=== PATIENT | male | born 1955 | race Caucasian/White ===

== ENCOUNTER 2017-06-11 14:22 | Emergency (ER) | payer BC, OTHER ==
[~2017-06-11] VITALS: Ht 172.7 cm; Wt 88.0 kg
[~2017-06-11 14:22] MED LIST: MISC1CAP60 PO; MULT-513 PO; MULT-655 PO; OMEG10007 PO; PRT40 PO
[2017-06-11 14:29] VITALS: TEMP 36.7; Ht 172.7 cm; Wt 88.0 kg
--- NOTE | 2017-06-11 15:17 | DIAGNOSTIC IMAGING REPORT ---
CT SCAN OF THE THORACIC SPINE WITHOUT IV CONTRAST CLINICAL HISTORY: Trauma. COMPARISON STUDY: Chest CT performed the same day 06/11/2017. TECHNIQUE: CT scan of the thoracic spine is performed from the lower cervical spine to the upper lumbar spine. Images are reviewed in the axial, sagittal, and coronal planes. IV contrast was not administered for this examination. A dose lowering technique was utilized adhering to the principles of ALARA. CT DOSE: 548.09 mGycm FINDINGS: The skeletal structures are osteopenic. There are subtle fractures of the posterior right sixth, seventh, and eighth ribs at the costovertebral junction. There are minimal and age indeterminant compression deformities of T1, T2, and T3. No retropulsed fragments are identified. Vertebral body height is otherwise maintained throughout the thoracic spine. Alignment is preserved. The transverse and spinous processes are intact. There is mild multilevel degenerative disc space narrowing. Small anterior osteophytes are seen throughout and there is hyperkyphosis. The visualized lung parenchyma is clear as imaged noting bibasilar scarring and atelectasis. The paraspinous soft tissues are within normal limits. A tiny hiatal hernia is observed. IMPRESSION: 1. There are minimal and age indeterminant superior endplate compression deformities of T1, T2, and T3. Correlate for point tenderness at these levels. 2. No additional findings are concerning for acute fracture involving the thoracic spine. 3. There are subtle nondistracted fractures of the posterior right 6th through 8th ribs at the costovertebral junction. 4. Osteopenia with mild degenerative change and hyperkyphosis as above. Electronically signed by: Malcolm Stringer M.D. 06/11/2017 3:15 PM Dictated Date/Time: 06/11/2017 3:06 PM
--- NOTE | 2017-06-11 15:18 | DIAGNOSTIC IMAGING REPORT ---
CT OF THE CHEST WITHOUT IV CONTRAST CLINICAL HISTORY: Trauma. Right-sided rib pain. COMPARISON STUDY: No previous studies for comparison. TECHNIQUE: Axial images of the chest were obtained without IV contrast. Images were reviewed in the axial, sagittal, and coronal planes. IV contrast was not administered for this examination. A dose lowering technique was utilized adhering to the principles of ALARA. FINDINGS: There is subtle sternal deformity. This is age indeterminate although likely old. No pneumothorax or pleural effusion is present. No enlarged thoracic lymph nodes are present. The central airways are patent. The thoracic spine will be reported separately. Note is made of multiple nondisplaced anterior right-sided rib fractures, including the anterior right third, fourth, fifth, sixth, seventh, eighth and ninth ribs. These are age-indeterminate but likely acute. There are also nondisplaced fractures of the posterior right sixth, seventh and eighth ribs which are likely acute as well. The upper abdomen is unremarkable on this unenhanced exam. IMPRESSION: 1. Multiple nondisplaced anterior and posterior right-sided rib fractures, as described above, which are age indeterminate but likely acute. No pneumothorax. 2. Mild sternal deformity which is age-indeterminate but likely old. This suggests old traumatic injury. Electronically signed by: Deric Quinteros M.D. 06/11/2017 3:17 PM Dictated Date/Time: 06/11/2017 3:05 PM
[2017-06-11] MEDS ORDERED: PANT40TA PO (15:21)
[2017-06-11] MEDS ORDERED: OXYCODONE HCL IR 5 MG TAB (IMMEDIATE RELEASE) PO STA (15:46)
[2017-06-11] MEDS ORDERED: OXYC1TAB3 PO (15:51)
--- NOTE | 2017-06-11 15:58 | EMERGENCY ROOM VISIT NOTE ---
History First contact with patient: 14:31 Chief Complaint: RIB PAIN Stated Complaint: ROLLED OVER ZERO TURN MOWER-RT RIBS/NECK/SHOULDER History of Present Illness The patient is a 61 year old male who presents to the Emergency Room with complaints of upper back and right rib pain. The patient states that he was smelling with a 0 radius mower on a hill when it flipped over. He states that it rolled over him and landed alongside him on that side. The patient states that he was able to get up on his own. The patient denies any loss of consciousness. The patient denies any head or neck pain. The patient denies any visual changes or shortness of breath. The patient does admit to right- sided rib pain and upper back pain. He denies any numbness and tingling in his extremities. The patient denies any abdominal pain. The patient states that he urinated prior to coming to the emergency room and there was no blood in his urine. The patient took acetaminophen for pain. Review of Systems 10 system review was performed and was negative unless stated otherwise history of present illness. Past Medical/Surgical History Medical Problems: (1) GERD (gastroesophageal reflux disease) Surgical Problems: (1) H/O colonoscopy (2) h/o varicocele removal Family History Diabetes mellitus FATHER FH: CAD (coronary artery disease) FATHER Hypertension FATHER Social History Smoking Status: Never Smoker Alcohol Use: occasionally Drug Use: none Marital Status: Housing Status: lives with significant other Occupation Status: employed Current/Historical Medications Scheduled Fish Oil ([place]-3), 2 CAP PO DAILY Misc Natural Products (Saw Cuney), 2 CAP PO DAILY Multivitamins/Minerals (Mvi With Minerals), 1 TAB PO DAILY Pantoprazole (Protonix), 40 MG PO QAM Scheduled PRN Oxycodone Immediate Rel Tab (Roxicodone Ir), 1-2 TAB PO Q4H PRN for Pain Physical Exam Vital Signs Date Time Temp Pulse Resp B/P (MAP) Pulse Ox O2 Delivery O2 Flow Rate FiO2 06/11/17 14:29 36.7 97 18 165/73 96 Room Air Physical Exam GENERAL: 61-year-old white male appears in no acute distress. MENTAL Status: Patient is alert and oriented 3. HEAD: Atraumatic, nontender to palpation FACE: Superficial abrasion noted over the left mandible. Patient is able to open and close his mouth without difficulty. Facial bones are nontender to palpation without any bony abnormality noted. EYES: PERRLA. EOMs intact. NECK: Supple, no lymphadenopathy noted. No carotid bruits noted. LUNGS: Clear auscultation without wheezes rales or rhonchi. CARDIAC: Regular rate and rhythm without murmur. Pulses is full and equal throughout. CHEST WALL: No gross bony deformity noted. No erythema or edema noted. The patient has tenderness to palpation over the right lateral chest wall. SPINE: Cervical spine is nontender to palpation. The patient is tender to palpation over the upper thoracic spine. Lumbar spine is nontender. No erythema, edema or ecchymosis noted. ABDOMEN: Positive bowel sounds all 4 quadrants. Soft, nontender to palpation without organomegaly or masses. NEURO:Cranial nerves two through 12 intact. Cerebellar function intact with [id number]. Fine motor intact with alternating finger motions. Medical Decision & Procedures ER Provider Diagnostic Interpretation: CT OF THE CHEST WITHOUT IV CONTRAST CLINICAL HISTORY: Trauma. Right-sided rib pain. COMPARISON STUDY: No previous studies for comparison. TECHNIQUE: Axial images of the chest were obtained without IV contrast. Images were reviewed in the axial, sagittal, and coronal planes. IV contrast was not administered for this examination. A dose lowering technique was utilized adhering to the principles of ALARA. FINDINGS: There is subtle sternal deformity. This is age indeterminate although likely old. No pneumothorax or pleural effusion is present. No enlarged thoracic lymph nodes are present. The central airways are patent. The thoracic spine will be reported separately. Note is made of multiple nondisplaced anterior right-sided rib fractures, including the anterior right third, fourth, fifth, sixth, seventh, eighth and ninth ribs. These are age-indeterminate but likely acute. There are also nondisplaced fractures of the posterior right sixth, seventh and eighth ribs which are likely acute as well. The upper abdomen is unremarkable on this unenhanced exam. IMPRESSION: 1. Multiple nondisplaced anterior and posterior right-sided rib fractures, as described above, which are age indeterminate but likely acute. No pneumothorax. 2. Mild sternal deformity which is age-indeterminate but likely old. This suggests old traumatic injury. Electronically signed by: Deric Quinteros M.D. 06/11/2017 3:17 PM Dictated Date/Time: 06/11/2017 3:[address] SCAN OF THE THORACIC SPINE WITHOUT IV CONTRAST CLINICAL HISTORY: Trauma. COMPARISON STUDY: Chest CT performed the same day 06/11/2017. TECHNIQUE: CT scan of the thoracic spine is performed from the lower cervical spine to the upper lumbar spine. Images are reviewed in the axial, sagittal, and coronal planes. IV contrast was not administered for this examination. A dose lowering technique was utilized adhering to the principles of ALARA. CT DOSE: 548.09 mGycm FINDINGS: The skeletal structures are osteopenic. There are subtle fractures of the posterior right sixth, seventh, and eighth ribs at the costovertebral junction. There are minimal and age indeterminant compression deformities of T1, T2, and T3. No retropulsed fragments are identified. Vertebral body height is otherwise maintained throughout the thoracic spine. Alignment is preserved. The transverse and spinous processes are intact. There is mild multilevel degenerative disc space narrowing. Small anterior osteophytes are seen throughout and there is hyperkyphosis. The visualized lung parenchyma is clear as imaged noting bibasilar scarring and atelectasis. The paraspinous soft tissues are within normal limits. A tiny hiatal hernia is observed. IMPRESSION: 1. There are minimal and age indeterminant superior endplate compression deformities of T1, T2, and T3. Correlate for point tenderness at these levels. 2. No additional findings are concerning for acute fracture involving the thoracic spine. 3. There are subtle nondistracted fractures of the posterior right 6th through 8th ribs at the costovertebral junction. 4. Osteopenia with mild degenerative change and hyperkyphosis as above. Electronically signed by: Malcolm Stringer M.D. 06/11/2017 3:15 PM Dictated Date/Time: 06/11/2017 3:06 PM ED Course The patient was evaluated. The patient was offered additional pain medication but declined. The patient's EMR medication list were reviewed. A CT of the chest and thoracic spine was ordered and interpreted by the radiologist as above with multiple rib fractures and endplate compression fractures of T1 through T3. The patient's case was discussed withDr. Betts who independently evaluated the patient and agreed with treatment plan. The patient was resting comfortably on reevaluation. He was informed of all findings. The patient was given OxyIR 5 mg by mouth. He was given instructions on spirometry. It was emphasized to the patient if he experiences any severe chest pain, fever, shortness of breath he is to return to the ER immediately. The patient verbalized understanding and was discharged home in stable condition.. Medical Decision Differential diagnosis include rib fractures versus rib contusion versus cardiac contusion, pneumothorax Due to the fractures being nondisplaced and the patient appeared to be doing well he was discharged to home. Impression Primary Impression: Multiple fractures of rib involving four or more ribs Additional Impression: Compression fx, thoracic spine Departure Information Dispostion Home / Self-Care Condition GOOD Prescriptions Oxycodone Immediate Rel Tab (ROXICODONE IR) 5 Mg Tab 1-2 TAB PO Q4H Y for Pain, #24 TAB Prov: La Nena Ga PA-C 06/11/17 Referrals Toño Hoyos M.D. (MEDICAL) (PCP) Forms HOME CARE DOCUMENTATION FORM, IMPORTANT VISIT INFORMATION, WORK / SCHOOL INSTRUCTIONS Patient Instructions ED Fx Rib, My [facility], Spirometry Inf Additional Instructions Avoid any strenuous exercise or upper body lifting. Tylenol as needed for pain. Take OxyIR as needed for more severe pain. Do not drive while taking the OxyIR. Recommend doing the spirometer as directed hourly while awake for the next week. Follow-up with your family doctor on Wednesday at 12:45 PM as directed by our mattress spring encaser. If you experience any fevers, severe shortness of breath, severe chest pain return to the ER immediately. Problem Qualifiers Additional Impression: Compression fx, thoracic spine Encounter type: initial encounter Fracture type: closed Qualified Codes: S22.000A - Wedge compression fracture of unspecified thoracic vertebra, initial encounter for closed fracture
[2017-06-11 15:59] VITALS: BP 130/78; PULSE 72; O2SAT 95
== END 2017-06-11 16:13 | disposition home or self-care (01) ==
LOC: C.EDB 14:24
DX: S22.49XA Multiple fractures of ribs, unspecified side, initial encounter for closed fracture (principal); S22.000A Wedge compression fracture of unspecified thoracic vertebra, initial encounter for closed fracture; W28.XXXA Contact with powered lawn mower, initial encounter; K21.9 Gastro-esophageal reflux disease without esophagitis; Z83.3 Family history of diabetes mellitus; Z82.49 Family history of ischemic heart disease and other diseases of the circulatory system